=== PATIENT | female | born 1980 | race Caucasian/White ===

== ENCOUNTER → 2024-02-16 15:31 | Outpatient (BNVA) | payer OTHER, SELFPAY | PROVIDERS: Visit Provider Nurse Practitioner Women's Health | DX: Z12.4 Encounter for screening for malignant neoplasm of cervix (principal) | CPT/HCPCS: 87624 ==

== ENCOUNTER 2024-03-05 06:00 | Outpatient (CLI) | payer OTHER, SELFPAY | END 2024-03-05 06:01 | disposition home or self-care (01) | LOC: RAD 03-23 14:46 | PROVIDERS: Visit Provider Nurse Practitioner Women's Health | DX: Z12.4 Encounter for screening for malignant neoplasm of cervix (principal) | CPT/HCPCS: 76830 ==

== ENCOUNTER 2024-03-15 11:38 | Outpatient (CLI) | payer OTHER, SELFPAY ==
--- NOTE | 2024-03-15 12:00 | MM_ITS ---
WS: [id number] BILATERAL 3D TOMOSYNTHESIS DIGITAL DIAGNOSTIC MAMMOGRAPHY WITH CAD CLINICAL INFORMATION: LUMP. HISTORY: Painful LEFT breast lump COMPARISON: None. TECHNIQUE: Bilateral CC, MLO, and ML views. FINDINGS: The breasts are composed of heterogeneous fibroglandular density, which can limit the detection of sm all underlying mass lesions. Dense parenchymal tissue deep to the palpable marker. Near the palpable marker in the outer LEFT breast are suspicious clustered calcifications middle depth and posterior de pth. These have a heterogeneous pleomorphic appearance and some suggest a ductal distribution. Ductal ectasia RIGHT breast. RIGHT breast is otherwise unremarkable with a dense parenchymal tissue. ULTRASOUND BREAST LEFT TECHNIQUE: Ultrasound left breast focused area of concern. CLINICAL INFORMATION: LUMP. FINDINGS: Ultrasound LEFT breast area of concern. Dense underlying parenchymal tissue. A few shadowing calcific ations are seen in a ductal distribution near the 3:30 position. Normal lymph nodes in the LEFT axill a. No solid parenchymal mass visualized. Recommend stereotactic guided biopsy of the suspicious LEFT breast calcifications. MM/[place] [id number] IMPRESSION: BI-RADS: 4-Suspicious Finding-Biopsy Should Be Considered FOLLOW UP: Stereotactic Biopsy Recommended Recommend stereotactic-guided biopsy of the suspicious LEFT breast calcificatio ns.
--- NOTE | 2024-03-15 13:19 | US_ITS ---
WS: [id number] BILATERAL 3D TOMOSYNTHESIS DIGITAL DIAGNOSTIC MAMMOGRAPHY WITH CAD CLINICAL INFORMATION: LUMP. HISTORY: Painful LEFT breast lump COMPARISON: None. TECHNIQUE: Bilateral CC, MLO, and ML views. FINDINGS: The breasts are composed of heterogeneous fibroglandular density, which can limit the detection of sm all underlying mass lesions. Dense parenchymal tissue deep to the palpable marker. Near the palpable marker in the outer LEFT breast are suspicious clustered calcifications middle depth and posterior de pth. These have a heterogeneous pleomorphic appearance and some suggest a ductal distribution. Ductal ectasia RIGHT breast. RIGHT breast is otherwise unremarkable with a dense parenchymal tissue. ULTRASOUND BREAST LEFT TECHNIQUE: Ultrasound left breast focused area of concern. CLINICAL INFORMATION: LUMP. FINDINGS: Ultrasound LEFT breast area of concern. Dense underlying parenchymal tissue. A few shadowing calcific ations are seen in a ductal distribution near the 3:30 position. Normal lymph nodes in the LEFT axill a. No solid parenchymal mass visualized. Recommend stereotactic guided biopsy of the suspicious LEFT breast calcifications. US/US breast LT limited* [id number] IMPRESSION: BI-RADS: 4-Suspicious Finding-Biopsy Should Be Considered FOLLOW UP: Stereotactic Biopsy Recommended Recommend stereotactic-guided biopsy of the suspicious LEFT breast calcificatio ns.
== END 2024-03-15 11:39 | disposition home or self-care (01) ==
LOC: RAD 11:38
PROVIDERS: Visit Provider Nurse Practitioner Women's Health
DX: N63.24 Unspecified lump in the left breast, lower inner quadrant (principal); R92.333 Mammographic heterogeneous density, bilateral breasts; R92.1 Mammographic calcification found on diagnostic imaging of breast
CPT/HCPCS: 76642; 77062; G0279

== ENCOUNTER 2024-04-17 11:52 | Outpatient (CLI) | payer OTHER, SELFPAY ==
--- NOTE | 2024-04-17 11:57 | MM_ITS ---
WS: [id number] STEREOTACTIC LEFT BREAST BIOPSY WITH VACUUM ASSISTANCE. History: Heterogeneous LEFT breast calcifications. Biopsy recommended for suspicious calcifications. Procedure, risks, and complications were discussed the patient who agreed to proceed. Prior imaging w as reviewed. Cluster of calcifications within the anterior left breast are localized. Stereotactic imaging was per formed. Patient was prepped and draped in usual sterile fashion. After 1% lidocaine, calcifications w ere targeted stereotactically in the LEFT breast. Small incision was made. Needle advanced into the c luster of calcifications LEFT breast with imaging demonstrating appropriate position relative to the calcifications. Multiple vacuum-assisted core biopsies were obtained. Postprocedure imaging demonstra lonny calcifications within the biopsy specimen. The biopsy cavity was lavaged. Titanium clip was placed at the biopsy site. Postprocedure imaging dem onstrates clip in good position. No immediate complications. MM/[place] [id number] IMPRESSION: 1. Uncomplicated vacuum-assisted stereotactic biopsy of calcifications in the anterior LEFT breast. 2. Recommend breast surgery consultation for resection of the anterior cluster ed sample calcifications. 3. Additional similar-appearing cluster of calcifications in the posterior lat eral LEFT breast not sampled with stereotactic biopsy and may not be amenable due to posterior depth. Consider wire localization and surgical resection of th mars calcifications Pathology: LEFT breast stereotactic guided biopsy of anterior calcifications * High-grade DCIS with comedo necrosis. * Solid cribriform and comedo types present * Negative for invasive carcinoma. * Microcalcifications identified within benign breast tissue. Breast prognostic profile is pending. Please see pathology for final report
--- NOTE | 2024-04-17 11:57 | MM_ITS ---
WS: [id number] LEFT 3D TOMOSYNTHESIS DIGITAL MAMMOGRAPHY WITH CAD CLINICAL INFORMATION: ABNORMAL MAMMO/POST BIOPSY HISTORY: LEFT breast calcifications COMPARISON: 03/15/2024 TECHNIQUE: 3 views of the left breast were obtained. FINDINGS: The left breast is composed of heterogeneous fibroglandular density tissue, which can limit the detec tion of small underlying mass lesions. Stereotactic biopsy clip in the area of calcifications. Residu al calcifications adjacent to the clip anterior LEFT breast. In addition, additional suspicious cluster of calcifications posterior depth LEFT breast near the orsa st wall laterally as previously described. These may not be amenable to stereotactic guided biopsy du e to posterior depth. These could be localized stereotactically for surgical resection considering pa thology of the anterior biopsied calcifications. MM/[place] [id number] Pathology: LEFT breast stereotactic guided biopsy of anterior calcifications * High-grade DCIS with comedo necrosis. * Solid cribriform and comedo types present * Negative for invasive carcinoma. * Microcalcifications identified within benign breast tissue. Breast prognostic profile is pending. Please see pathology for final report IMPRESSION: DENSITY: The breasts are heterogeneously dense, which may obscure small masses. BI-RADS: Post Biopsy FOLLOW UP: Surgical Biopsy Recommended
[2024-04-23 14:09] LABS: Breast Profile ER,PR,HER2,Ki-6 See Report
== END 2024-04-17 11:53 | disposition home or self-care (01) ==
PROVIDERS: PCP Registered Nurse; Visit Provider Nurse Practitioner Women's Health
DX: R92.8 Other abnormal and inconclusive findings on diagnostic imaging of breast (principal); R92.333 Mammographic heterogeneous density, bilateral breasts; R92.1 Mammographic calcification found on diagnostic imaging of breast; D05.12 Intraductal carcinoma in situ of left breast
CPT/HCPCS: 19081; 77065; 88305; 88361; 88374